=== PATIENT | female | born 1940 | race Two or more races ===

== ENCOUNTER 2023-08-17 07:37 | Outpatient (CLI) | payer OTHER ==
[~2023-08-17 07:37] MED LIST: CLONAZEPAM1 MG PO; LOTREL 5-10 MG1 CAP PO; SIMVASTATIN20 MG PO
== END 2023-08-17 07:40 | disposition home or self-care (01) ==
LOC: NUCLEAR 07:37
PROVIDERS: ATTEND Internal Medicine Cardiovascular Disease
DX: I11.9 Hypertensive heart disease without heart failure (principal); E78.00 Pure hypercholesterolemia, unspecified
CPT/HCPCS: 78452; 93017; A9500; J0153

== ENCOUNTER 2025-02-05 16:50 | Emergency (ER) | payer OTHER ==
[~2025-02-05] VITALS: Ht 157.5 cm; Wt 61.2 kg
[2025-02-05] MEDS ORDERED: LOSARTAN POTASS25 MG PO (17:03)
== END 2025-02-05 18:37 | disposition home or self-care (01) ==
LOC: ER 16:51
DX: H10.89 Other conjunctivitis (principal); I10 Essential (primary) hypertension